=== PATIENT | male | born 1980 | race Caucasian/White ===

== ENCOUNTER 2016-11-17 18:54 | Observation (INO) ==
[2016-11-17] MEDS ORDERED: Lidocaine Viscous Oral Soln 15 ML SOLUTION MM ONE (20:23)
[2016-11-17] MEDS ORDERED: Lidocaine -MPF 4% 5 ML AMPUL TP ONE (20:24)
--- NOTE | 2016-11-17 20:55 | Emergency Department Note ---
Disposition Clinical Impression: Esophageal abnormality Disposition: Admitted As Inpatient Condition: Fair Time of Disposition: 20:49 General Adult HPI - General Chief complaint: ED General Medical Stated complaint: food in throat Time Seen by Provider: 11/17/16 19:59 Source: patient Limitations: no limitations Nursing Notes Reviewed: Yes Vital Signs Reviewed: Yes - History of Present Illness HPI Narrative: Patient is a 36-year-old male who presents to [facility] ED with a chief complaint of inability to swallow. States he was eating pizza earlier tonight and it felt like it got stuck in his throat. He was able to vomit this back up. States ever since then, he has been unable to control his secretions. He is continually spitting his spit back into a bag. Unable to drink any fluids. He states he just feels everything is very tight in the region just below the base of his anterior neck. He has been suffering with difficulty swallowing for the last few years. States he has never had a scope done before. Denies any other medical problems. Onset (ago): hour(s) Pain Scale: 2 Consistency: Worsening Improves with: nothing Worsens with: nothing Associated symptoms: Reports: denies other symptoms. Denies: chest pain, cough , fever/chills, nausea/vomiting, shortness of breath Treatments Prior to Arrival: none - Related Data Home Medications Medication Instructions Recorded Confirmed Cetirizine HCl [Zyrtec] 10 mg PO DAILY 11/17/16 11/17/16 Pantoprazole Sodium [Protonix] 20 mg PO DAILY 11/17/16 11/17/16 Allergies Allergy/AdvReac Type Severity Reaction Status Date / Time bees Allergy Hives Uncoded 11/17/16 19:19 All systems ED: reviewed and negative except as stated. Past Medical History - Past Medical History Attestation: Yes The following information was validated with the patient. Source: patient Medical history: Reports: GERD - Social History Smoking Status: Never smoker Alcohol use: Reports: none Drug use: Reports: none Physical Exam - General Limitations: no limitations General appearance: alert, in no apparent distress - Head Head exam: atraumatic, normocephalic, normal inspection - Eye Eye exam: Present: normal appearance, EOMI - ENT ENT exam: normal exam, normal oropharynx, mucous membranes moist - Neck Neck exam: Present: normal inspection - Chest Chest inspection: Present: normal inspection, symmetric chest wall rise - Respiratory Respiratory exam: Present: normal lung sounds bilaterally - Cardiovascular Cardiovascular exam: Present: normal rhythm, tachycardia, normal heart sounds - Abdominal Exam Abdominal exam: Present: soft, Non-Tender. Absent: tenderness, distention, guarding, rebound, rigidity - Extremities Exam Extremities exam: Present: normal inspection, full ROM. Absent: tenderness, pedal edema - Neurological Exam Neurological exam: Present: alert - Psychiatric Psychiatric exam: Present: normal affect, normal mood - Skin Skin exam: Present: warm, dry, intact, normal color Course Course Narrative: Patient seen and examined. Has trouble swallowing and feels there is tightness around his esophagus. Since he is unable to swallow or control his own secretions, I discussed this case with surgeon Dr. Cotter. States he will admit the patient and scope him tomorrow. I discussed this plan with the patient and he agrees. Vital Signs Temperature 98.2 F 11/17/16 19:16 Pulse Rate 102 11/17/16 19:16 Respiratory Rate 18 11/17/16 19:16 Blood Pressure 135/96 11/17/16 19:16 O2 Sat by Pulse Oximetry 96 11/17/16 19:16 Temperature 97.3 F L 11/17/16 22:04 Pulse Rate 82 11/17/16 22:04 Respiratory Rate 20 11/17/16 22:04 Blood Pressure 129/82 11/17/16 22:04 O2 Sat by Pulse Oximetry 97 11/17/16 22:04 Oxygen Delivery Oxygen Delivery Room Air Medical Decision Making - Medical Records Medical records reviewed: Yes I reviewed the patient's medical records.
--- NOTE | 2016-11-17 21:20 | Emergency Department Note ---
START Narrative - START START: I examined this patient and my medical decision-making was reviewed with the Resident Physician. I agree with the documented findings, disposition and treatment plan as described except to the extent set forth below. Patient to the difficulty swallowing. Patient states he has had trouble for years. He was seen by a physician in [place] several years ago who told him he needed his esophagus stretched. His physician left and he never had the procedure. He has been having issues with choking and coughing up food. Tonight he got choked on pizza. Now he cannot swallow his own secretions. On examination he sitting on the side of the bed. Clear lungs. Holding a green vomit bag with a moderate amount of secretions in it. Plan. Concern for food bolus and esophageal stricture. We will try glucagon. Will discuss with on- call endoscopy.
[2016-11-17] MEDS ORDERED: *HR* HYDROmorphone (PF) 1 MG/ML SYRINGE IVP PRN (22:15)
[2016-11-17] MEDS ORDERED: Ondansetron 4 MG/2 ML VIAL IVP PRN (22:16)
[2016-11-18] MEDS: 0.9 % Sodium Chloride 1,000 ML IVC SCH ×3 (00:14→19:52)
[2016-11-18 05:19] LABS: Basophils % 0.4 %; Eosinophils # 0.1 K/mcL (0.0-0.6); Eosinophils % 1.2 %; Hematocrit 42.2 % (37.5-50.1); Hemoglobin 13.4 g/dL (12.9-16.9); INR 1.1; Immature Granulocytes % 0.4 % (0-4); Lymphocytes # 1.6 K/mcL (0.6-4.6); Lymphocytes % 20.2 %; Mean Corpuscular HGB Conc 31.8 g/dL (31.6-35.5); Mean Corpuscular Volume 84.9 fL (83.0-100.0); Mean Platelet Volume 9.8 fL (9.4-12.4); Monocytes # 0.6 K/mcL (0.0-1.3); Monocytes % 7.3 %; Neutrophils # 5.4 K/mcL (1.6-8.9); Platelet Count 271 K/mcL (140-400); Prothrombin Time 12.2 Seconds (9.4-12.1); Red Blood Count 4.97 M/mcL (4.19-5.50); Red Cell Distribution Width 13.6 % (11.5-14.5); Segmented Neutrophils % 70.5 %
[2016-11-18 05:22] LABS: Activated Partial Thrombo Time 28.1 Seconds (26.0-36.0)
[2016-11-18 05:37] LABS: BUN/Creatinine Ratio 10 (6-26); Blood Urea Nitrogen 10 mg/dL (8-26); Calcium 8.8 mg/dL (8.6-10.8); Carbon Dioxide 26 mEq/L (19-29); Chloride 107 mEq/L (98-109); Glucose 81 mg/dL (70-99); Osmolality,Calculated 290 (280-300); Potassium 3.6 mEq/L (3.5-4.5); Sodium 141 mEq/L (136-145); eGFR For African Americans > 60 (> 60); eGFR For Non-African Americans > 60 (> 60)
--- NOTE | 2016-11-18 07:45 | General Surg History&Physical ---
Date of Encounter: 11/18/16 Time of Encounter: 07:15 Assessment and Plan (1) Esophageal abnormality Current Visit: Yes Status: Acute The assessment and plan as outlined above was discussed with the patient and/or family members who expressed understanding and agreement. All questions were answered. The patient likely has undiagnosed esophageal stenosis with recurrent food bolus impaction. This may be related to his gastroesophageal reflux in the form of the Schatzki's ring or scarring secondary to reflux esophagitis. We will plan on diagnostic upper endoscopy today with possible esophageal dilatation. History of Present Illness Chief complaint: Dysphagia HPI: Mr. Sellers is a 36 year old male Who has had a 6 year history of progressive dysphagia. He notes that there are particular foods that he has difficulty swallowing including bread and fibrous meats. Last evening he had a piece of pizza lodged in the esophagus. This dislodged after extended period of retching and vomiting. He sought evaluation in the emergency room. Last evening he was unable to swallow his saliva. He was admitted to the hospital for further workup. This morning on evaluation he is able to swallow his saliva a long-standing history of gastroesophageal reflux disease and has been on proton pump inhibitor for 2 years. He took over- the-counter antacid medicines prior to that.. He also has obstructive sleep apnea. He has had no previous abdominal surgery. He denies vomiting blood or passing blood in stool. He now presents for diagnostic upper endoscopy with possible esophageal dilatation. Past Med Surg Social Fam HX - Past Medical History Medical history: GERD Psychiatric history: no psych history - Past Surgical History Surgical History: orthopedic, other - Social History Smoking Status: Never smoker Alcohol use: none Drug use: none - Family History Grandmother Hx Family Cancer: Yes Medications and Allergies Cetirizine HCl [Zyrtec] 10 mg PO DAILY 11/17/16 [History] Pantoprazole Sodium [Protonix] 20 mg PO DAILY 11/17/16 [History] 3 Allergy/AdvReac Type Severity Reaction Status Date / Time bees Allergy Hives Uncoded 11/17/16 19:19 Review of Systems All systems PM: A 10-system review of systems was performed and is negative for pertinent findings except as documented above in the HPI. General Surgery Exam Initial Vital Signs Temp Pulse Resp BP Pulse Ox 98.2 F 102 18 135/96 96 11/17/16 19:16 11/17/16 19:16 11/17/16 19:16 11/17/16 19:16 11/17/16 19:16 - General physical appearance well developed, well nourished, no distress - Neck no masses, no bruits, trachea midline, no lymphadectomy, no venous distension - Respiratory normal expansion, normal respiratory effort, clear to percussion, clear to auscultation - Cardiovascular Cardiovascular exam: Present: RRR, 15, 16 - Abdomen Abdomen general surgery: Present: bowel sounds present, soft, non tender - Neurologic Present: CN 2-12 grossly intact, normal coordination, normal sensation - Psychiatric Psychiatric general surgery: Present: appropriate, oriented to person, oriented to place, oriented to time, speech is normal, memory intact Results - Labs 11/18/16 03:32 11/18/16 03:32 Abnormal lab results MCH 27.0 pg (28.0-33.3) L 11/18/16 03:32 PT 12.2 Seconds (9.4-12.1) H 11/18/16 03:32 Diabetes panel 11/18/16 Range/Units 03:32 Sodium 141 (136-145) mEq/L Potassium 3.6 (3.5-4.5) mEq/L Chloride 107 (98-109) mEq/L Carbon Dioxide 26 (19-29) mEq/L BUN 10 (8-26) mg/dL Creatinine 1.01 (0.72-1.25) mg/dL Glucose 81 (70-99) mg/dL Calcium 8.8 (8.6-10.8) mg/dL Calcium panel 11/18/16 Range/Units 03:32 Calcium 8.8 (8.6-10.8) mg/dL Pituitary panel 11/18/16 Range/Units 03:32 Sodium 141 (136-145) mEq/L Potassium 3.6 (3.5-4.5) mEq/L Chloride 107 (98-109) mEq/L Carbon Dioxide 26 (19-29) mEq/L BUN 10 (8-26) mg/dL Creatinine 1.01 (0.72-1.25) mg/dL Glucose 81 (70-99) mg/dL Calcium 8.8 (8.6-10.8) mg/dL Adrenal panel 11/18/16 Range/Units 03:32 Sodium 141 (136-145) mEq/L Potassium 3.6 (3.5-4.5) mEq/L Chloride 107 (98-109) mEq/L Carbon Dioxide 26 (19-29) mEq/L BUN 10 (8-26) mg/dL Creatinine 1.01 (0.72-1.25) mg/dL Glucose 81 (70-99) mg/dL Calcium 8.8 (8.6-10.8) mg/dL All other labs normal. - Imaging Chest x-ray: image reviewed (I personally reviewed the chest x-ray. There is no evidence of perforation or inflammation. There is no evidence of mediastinal mass.) - VTE Reasons for not Prescribing Prophylaxis: Treatment not Indicated - Low risk for VTE
--- NOTE | 2016-11-18 10:14 | Anesthesia Evaluation PreOp ---
Date of Encounter: 11/18/16 Time of Encounter: 10:13 - Past History Planned Operation: EGD Cardiac History: Denies any Significant Hx Pulmonary History: Denies Any Significant HX OUTSIDE [employer] History: Denies Any Significant HX Other Medical History: GERD Anesthesia History: No Prior Anesthetic Complications, Past Anesthesia (LUE fx repair) Alcohol Use: none Drug use: none Medications and Allergies Cetirizine HCl [Zyrtec] 10 mg PO DAILY 11/17/16 [History] Pantoprazole Sodium [Protonix] 20 mg PO DAILY 11/17/16 [History] 3 Allergy/AdvReac Type Severity Reaction Status Date / Time bees Allergy Hives Uncoded 11/17/16 19:19 - Meds/Allergy Pre-op Review Medications Reviewed: Yes Allergies Reviewed: Yes Beta Blockers on Current Med List: No Anesthesia Results - Labs 11/18/16 03:32 11/18/16 03:32 Anesthesia Exam Vital Signs/O2 Sat, Most Current Temp Pulse Resp BP Pulse Ox 97.6 F 76 18 121/77 98 11/18/16 06:37 11/18/16 06:37 11/18/16 06:37 11/18/16 06:37 11/18/16 06:37 - HEENT Pupil (Motor): Pupils equal, EOMI Mallampati: III Oral Opening: Greater than 3 - OUTSIDE [employer]ANT LOC: Oriented [employer]SIDE [employer]ANT Motor: Normal RUE, Normal LUE, Normal RLE, Normal LLE, Normal Face [employer] Sensory: Normal: RUE, LUE, RLE, LLE, Face - Cardiac Rhythm: Regular - Pulmonary Breath Sounds: bilateral Clear Respiratory Effort: Symmetrical Anesthesia Assess/Plan ASA Score: 2 Modified Jasmina Scale for Level of Consciousness: Cooperative, oriented, and tranquil Anesthetic Plan: General (plan b), MAC Monitoring Plan: Standard Monitors Recovery Plan: PACU
[2016-11-18] MEDS ORDERED: *HR* Propofol 200 MG/20 ML VIAL IVP ONE ×2 (10:16→13:19)
[2016-11-18] MEDS ORDERED: Lidocaine -MPF 2% 2 ML VIAL ONE (12:32)
--- NOTE | 2016-11-18 13:42 | Event Note ---
Date of Encounter: 11/18/16 Time of Encounter: 13:30 The patient underwent upper endoscopy. He had 2 areas of esophageal stenosis. The upper area of esophageal stenosis was about 9 mm in diameter and the endoscope would not pass. I dilated to 15 mm. The patient had 2 areas of mucosal break. There was a moderate amount of bleeding. I then passed the scope into the distal esophagus and noted that there was a Schatzki's ring. This would also need to be dilated however the opening was much larger at perhaps 15 mm. The stomach was intubated and insufflated. The pylorus and duodenum were normal I retroflexed the scope he had a moderate-sized hiatal hernia with the Schatzki's ring at the top. I then dilated Schatzki's ring to 18 mm and I dilated the mid esophageal stenosis to 18 mm. Again bleeding was moderate. The scope was withdrawn the patient tolerated the procedure well he will require repeat dilatation. It was noted that there was an area of abnormal granulation tissue at the upper stenosis that was visible after dilatation. I did obtain one biopsy of this tissue. I will see him back in 6 weeks in the office for repeat dilatation
[2016-11-18] MEDS ORDERED: Ondansetron 4 MG/2 ML VIAL IVP PRN (13:51)
[2016-11-18] MEDS ORDERED: *HR* HYDROmorphone (PF) 1 MG/ML SYRINGE IVP PRN (13:51)
--- NOTE | 2016-11-18 15:40 | Anesthesia Evaluation Post Op ---
Date of Encounter: 11/18/16 Time of Encounter: 15:39 - Vital Signs Vital Signs: Vital Signs/O2 Sat, Most Current Temp Pulse Resp BP Pulse Ox 97.4 F L 71 16 116/66 97 11/18/16 15:34 11/18/16 15:34 11/18/16 15:34 11/18/16 15:34 11/18/16 15:34 - Lungs Lungs: Clear Ascult./Percussion - Airway Airway: Non-obstructed - Cardiovascular Regular Rate - Mental Status Mental Status: Alert & Oriented, Answers Appropriately - Pain Pain Scale: 0 Pain Scale used: Numeric (1 - 10) - Nausea Vomiting Nausea Vomiting: Not Present - Hydration Hydration: Tolerates oral liquids Notes: 11/18/16 15:39 I have assessed this patient and find they meet discharge criteria. - Discharge PostOp Status: Transfer Patient to floor
[2016-11-18] MEDS: Pantoprazole 40 MG VIAL IVP SCH (17:20)
[2016-11-19] MEDS: 0.9 % Sodium Chloride 1,000 ML IVC SCH (05:09)
[2016-11-19] MEDS: Pantoprazole 40 MG VIAL IVP SCH (05:09)
[2016-11-19 06:44] VITALS: BP 113/76
--- NOTE | 2016-11-19 10:32 | Discharge Summary ---
<Lamine Urbina - Last Filed: 11/19/16 10:29> Date of Encounter: 11/19/16 Time of Encounter: 08:00 - Discharge Diagnosis (1) Esophageal abnormality Status: Acute - Discharge Medications Prescriptions: Pantoprazole Sodium [Protonix] 40 mg PO DAILY #30 tablet. Home Medications: Cetirizine HCl [Zyrtec] 10 mg PO DAILY 11/17/16 [History] Pantoprazole Sodium [Protonix] 40 mg PO DAILY #30 tablet. 11/19/16 [Rx] Allergies/Adverse Reactions: 3 Allergy/AdvReac Type Severity Reaction Status Date / Time bees Allergy Hives Uncoded 11/17/16 19:19 General Surgery Exam Initial Vital Signs Temp Pulse Resp BP Pulse Ox 98.2 F 102 18 135/96 96 11/17/16 19:16 11/17/16 19:16 11/17/16 19:16 11/17/16 19:16 11/17/16 19:16 - General physical appearance well developed, well nourished, no distress - Eyes normal ocular movement - ENT atraumatic, normocephalic - Neck trachea midline - Respiratory normal expansion, normal respiratory effort, clear to auscultation - Cardiovascular Cardiovascular exam: Present: RRR. Absent: tachycardia - Abdomen Abdomen general surgery: Present: bowel sounds present, soft, non tender - Musculoskeletal Present: normal posture - Psychiatric Psychiatric general surgery: Present: appropriate, speech is normal Date of admission: 11/17/16 20:48 Primary care physician: PCP BIANCA Discharging clinician: Elpidio Cotter Anticipated date of discharge: 11/19/16 - Patient Status Disposition: Home, Self-Care Condition: Good Functional capacity at discharge: independent ambulation Overall status at discharge: patient is progressing back to baseline - Discharge Instructions Follow Up With: NONE,PCP [Primary Care Provider] - Elpidio Cotter MD [Partnered Physician] - Forms: ED Satisfaction Letter, Work/School Release Additional Instructions: Follow up with Dr. Cotter in 4-6 weeks Continue full liquids for 2-3 days before progressing to regular diet. - Diet and Activity Activity: resume usual activities as tolerated Diet: advance to your usual diet - Hospital Course Hospital course: Mr. Sellers is a 36 year old male with PMH of GERD who presented to [facility] with 6- year progressive dysphagia with an episode of having pizza lodged in his esophagus. He was able to remove it with extending retching and vomiting. He underwent endoscopy on 11/19/[address] Cotter, which showed 2 areas of esophageal stenosis, both of which were dilated without issue. There was also an area of granulation tissue which was biopsied. On POD #1, the patient was doing well, tolerating clears with little discomfort, and demonstrating no tachycardia, fever, or chest pain. He was discharged home in stable condition. - Time Spent with Patient Total time spent providing and/or coordinating discharge services: Less than 30 minutes Labs on day of discharge: Labs from last 24 hours 11/18/16 11:02 POC Glucose 87 - Impressions ITS Impressions Chest X-Ray 11/17/16 22:14 IMPRESSION: No acute process. D/ / Teresita Resendez MD / Teresita Resendez MD Interpreting Provider: Teresita Resendez MD <Elpidio Cotter - Last Filed: 11/20/16 11:56> Date of Encounter: 11/19/16 - Discharge Diagnosis (1) Esophageal abnormality Priority: Primary Status: Acute Comments: The patient had esophageal dilatation for 2 areas of stenosis and tolerated this very well. General Surgery Exam Initial Vital Signs Temp Pulse Resp BP Pulse Ox 98.2 F 102 18 135/96 96 11/17/16 19:16 11/17/16 19:16 11/17/16 19:16 11/17/16 19:16 11/17/16 19:16 - General physical appearance well developed, well nourished, no distress - Respiratory normal expansion, normal respiratory effort, clear to percussion, clear to auscultation - Cardiovascular Cardiovascular exam: Present: RRR, 15, 16 - Abdomen Abdomen general surgery: Present: bowel sounds present, soft, non tender Date of admission: 11/17/16 20:48 Primary care physician: PCP NONE - Patient Status Functional capacity at discharge: independent ambulation Overall status at discharge: patient is back to baseline - Diet and Activity Activity: resume usual activities as tolerated Diet: other (Full liquid diet for several days then advance as tolerated) - Hospital Course Hospital course: Mr. Sellers is a 36 year old male - Time Spent with Patient Total time spent providing and/or coordinating discharge services: Less than 30 minutes - Impressions ITS Impressions Chest X-Ray 11/17/16 22:14 IMPRESSION: No acute process. D/ / Teresita Resendez MD / Teresita Resendez MD Interpreting Provider: Teresita Resendez MD - Attending Attestation I examined this patient and my medical decision-making was reviewed with the Resident Physician. I agree with the documented findings, disposition and treatment plan as described except to the extent set forth below. The patient is seen and evaluated on morning rounds. He is having no dysphagia after esophageal dilatation. He may be discharged to home on a full liquid diet. I will see him in 6 weeks my office Elpidio Cotter MD FACS
== END 2016-11-19 11:30 | disposition home or self-care (01) ==
LOC: 3ANU 18:54 → EMEROO 18:54 → 3ANU 20:51
PROVIDERS: ADMIT Surgery; ATTEND Surgery
PROC: ENDOORB (2016-11-18 13:00)